=== PATIENT | female | born 1940 | race Caucasian/White ===

== ENCOUNTER → 2018-02-24 | Outpatient (CLI) | payer OTHER ==
[~2018-02-24] MED LIST: ASPIRIN325 PO; CEPACOL SORE T1 EAC8 PO; COQ1050 MG PO; HYDROCODON-ACE1 EAC7 PO; IRON159 MG PO; LISINOPRIL5 MG PO; MULTIVITAMINS1 EAC7 PO; PRILOSEC 20 MG20 MG PO
== END ==
LOC: ULTRA 10:23
DX: E04.2 Nontoxic multinodular goiter (principal); I10 Essential (primary) hypertension; Z87.891 Personal history of nicotine dependence

== ENCOUNTER → 2019-08-24 | Outpatient (CLI) | payer OTHER ==
[~2019-08-24] MED LIST changes: +COQ-1030 MG PO; +COZAAR 25 MG TA25 M1 PO; +LIPITOR10 MG PO
== END ==
LOC: NUC 10:17
DX: Z12.31 Encounter for screening mammogram for malignant neoplasm of breast (principal); M81.0 Age-related osteoporosis without current pathological fracture; N91.2 Amenorrhea, unspecified; Z78.0 Asymptomatic menopausal state

== ENCOUNTER → 2020-10-17 | Outpatient (CLI) | payer OTHER | LOC: MRI 14:55 | PROVIDERS: ATTEND Neuromusculoskeletal Medicine & OMM | DX: M51.05 Intervertebral disc disorders with myelopathy, thoracolumbar region (principal); M51.15 Intervertebral disc disorders with radiculopathy, thoracolumbar region; M48.05 Spinal stenosis, thoracolumbar region; M47.26 Other spondylosis with radiculopathy, lumbar region; M25.78 Osteophyte, vertebrae; M54.42 Lumbago with sciatica, left side ==